=== PATIENT | female | born 1950 | race Caucasian/White ===

== ENCOUNTER → 2017-10-05 16:07 | Outpatient (CLI) | payer OTHER ==
[2016-05-04 10:50] VITALS: BMI 27.5
[~2017-10-05 16:07] MED LIST: DILAUDID2 MG PO; DILAUDID4 MG PO; PROTONIX40 MG PO; REGLAN10 MG PO; VALIUM5 MG PO; VOLTAREN100 MG PO; ZOFRAN4 MG PO
== END | disposition home or self-care (01) ==
LOC: D.MAMMO 15:30
DX: Z12.31 Encounter for screening mammogram for malignant neoplasm of breast (principal)

== ENCOUNTER 2018-03-04 20:13 | Emergency (ER) | payer MEDICARE ==
[2016-05-04 10:50] VITALS: BMI 27.5
== END 2018-03-05 | disposition home or self-care (01) ==
LOC: D.ER 20:13
DX: S80.02XA Contusion of left knee, initial encounter (principal); W19.XXXA Unspecified fall, initial encounter; Y93.89 Activity, other specified; Y92.019 Unspecified place in single-family (private) house as the place of occurrence of the external cause; F17.200 Nicotine dependence, unspecified, uncomplicated

== ENCOUNTER → 2018-03-26 11:15 | Outpatient (CLI) | payer MEDICARE, MEDICAID ==
[~2018-03-26] VITALS: Ht 162.6 cm; Wt 76.4 kg
--- NOTE | ~2018-03-26 | HEMODYNAMI ---
PATIENT:ANY RUSSELL MEDICAL RECORD: [id number] : 54 LOCATION:D.CAT ADMISSION DATE: 03/26/18 Generatedon:03/26/201813:43 Patient name: ANY RUSSELL Patient #: [id number] SSN: : 1950 Date of study: 03/26/2018 Page: Of Hemodynamic Procedure Report Patient Data Patient Demographics Procedure consent was obtained First Name: ANY Gender: Female Last Name: DREW : 1950 [facility] Initial: P Age: 67 year(s) Patient #: [id number] Race: Unknown Additional ID: [id number] Contact details [address]: [address] [place] [address] State: [place] City: [place] Zip code: [address] Admission Admission Data Admission Date: 03/26/2018 Admission Time: 11:15 Arrival Date: 03/26/2018 Arrival Time: 13:00 Admit Source: Other Insurance Payor: Medicare Height (in.): 64 BSA: 1.83 (m2) Height (cm.): 162.56 BMI: 29.52 (kg/m2) Weight (lbs.): 172 Weight (kg.): 78.02 Procedure Procedure Types Cath Procedure Diagnostic Procedure [facility] w/Coronaries Sedation Charges Moderate Sedation up to 30 minutes Peripheral Cath Diagnostic Procedure Cath Peripheral Wquti-Nhbkpfd-Uud-Off Procedure Description Procedure Date Procedure Date: 03/26/2018 Procedure Start Time: 13:12 Procedure End Time: 13:38 Procedure Staff Name Function Lencho Montanez MD Performing Physician Alee Soto RT Monitor Tereza Krishna RN Nurse Bonita Medina RT Scrub Procedure Data Cath Procedure Fluoroscopy Diagnostic fluoroscopy Total fluoroscopy Time: 2.8 time: 2.8 min min Diagnostic fluoroscopy Total fluoroscopy dose: 421 dose: 421 mGy mGy Contrast Material Contrast Material Type Amount (ml) Isovue 300 118 Entry Location Entry Primary Successful Side Size Upsize Upsize Entry Closure Succes sful Closure Location (Fr) 1 (Fr) 2 (Fr) Remarks Device Remarks Femoral Left 5 Fr Exoseal artery Estimated blood loss: 5 ml Diagnostic catheters Device Type Used For End Catheter Placement MULTIPACK JL 4.0 5Fr Left Coronary catheter Angiography MULTIPACK 3DRC 5Fr Right Coronary catheter Angiography MULTIPACK Pigtail 5 Fr Multi-vessel catheter Angiography Procedure Complications No complications Procedure Medications Medication Administration Route Dosage Oxygen etCO2 Nasal cannula 2 l/min Heparin Flush Bag added to field 2 bags (1000units/500ml NS) 0.9% NaCl I.V. 100 ml/hr Lidocaine 1% added to field 20 Versed I.V. 1 mg Fentanyl I.V. 50 mcg Versed I.V. 1 mg Fentanyl I.V. 50 mcg Versed I.V. 1 mg Fentanyl I.V. 50 mcg Versed I.V. 1 mg Fentanyl I.V. 50 mcg Versed I.V. 1 mg Fentanyl I.V. 50 mcg Hemodynamics Rest BSA: 1.83 (m2) O2 Consumption: Estimated: 176.02 (ml/min) O2 Consumption indexed : Estimated:96.19 (ml/min/m) Heart Rate: 77 (bpm) Pressure Samples Time Site Value (mmHg) Purpose Heart Use Rate(bpm) 13:29 LV 112/21,26 Snapshot 85 13:30 AO 128/58(88) Pullback 87 13:30 LV 129/-4,18 Pullback 87 Gradients Valve Time Site 1 Site 2 Mean SEP/DFP Peak To Heart Use (mmHg) (sec/min) Peak Rate (mmHg) (bpm) Aortic 13:30 LV AO 5 23 1 87 129/-4,18 128/58(88) Calculations Valve P-P Mean Valve Index Valve Source Name Gradient Area Flow (cm2) Aortic 1 5 1 5 Snapshots Pre Cath Intra NCS Post Cath Vital Signs Time Heart Resp SPO2 etCO2 NIBP (mmHg) Rhythm Pain Sedation Rate (ipm) (%) (mmHg) Status Level (bpm) 13:00:20 77 17 100 14.2 134/86(129) NSR 0 (11) 10(A) , No pain 13:05:00 79 19 100 20.2 92/60(82) NSR 0 (11) 10(A) , No pain 13:09:39 80 17 99 20 99/57(65) NSR 0 (11) 10(A) , No pain 13:14:17 78 18 98 18.7 94/64(76) NSR 0 (11) 9(A) , No pain 13:18:54 77 18 93 14.9 105/67(97) NSR 0 (11) 10(A) , No pain 13:23:32 86 17 95 20.2 107/77(87) NSR 0 (11) 9(A) , No pain 13:28:15 88 17 95 0 107/58(76) NSR 0 (11) 9(A) , No pain 13:32:54 88 16 99 18.7 88/58(75) NSR 0 (11) 9(A) , No pain 13:37:30 88 16 99 18.7 84/54(71) NSR 0 (11) 10(A) , No pain 13:42:05 83 17 100 21.7 91/62(72) NSR 0 (11) 10(A) , No pain Medications Time Medication Route Dose Verified Delivered Reason Notes Eff ectiveness by by 12:59:47 Oxygen etCO2 2 Lencho Buffie Per Nasal l/min Tarik Krishna RN physician cannula 12:59:56 Heparin Flush added 2 Lencho Buffie used for Bag to bags Tarik Krishna RN procedure (1000units/500ml field NS) 13:00:06 0.9% NaCl I.V. 100 Lencho Buffie Per ml/hr Tarik Krishna RN physician 13:01:08 Lidocaine 1% added 20ml Lencho Buffie for local to vial Tarik Krishna RN anesthetic field 13:04:28 Versed I.V. 1 mg Lencho Buffie for Tarik Krishna RN sedation 13:04:33 Fentanyl I.V. 50 Lencho Buffie for mcg Tarik Krishna RN sedation 13:08:35 Versed I.V. 1 mg Lencho Buffie for Tarik Krishna RN sedation 13:08:39 Fentanyl I.V. 50 Lencho Buffie for mcg Tarik Krishna RN sedation 13:12:25 Versed I.V. 1 mg Lencho Buffie for Tarik Krishna RN sedation 13:12:28 Fentanyl I.V. 50 Lencho Buffie for mcg Tarik Krishna RN sedation 13:18:28 Versed I.V. 1 mg Lencho Buffie for Montanez MD Krishna RN sedation 13:19:31 Fentanyl I.V. 50 Lencho Cesiaie for mcg Tarik Krishna RN sedation 13:23:21 Versed I.V. 1 mg Lencho Tereza for Tarik Krishna RN sedation 13:23:24 Fentanyl I.V. 50 Lencho Tereza for mcg Tarik Krishna RN sedation Procedure Log Time Note 12:44:31 Tereza Krishna RN sent for patient. Start room use. 12:44:32 Time tracking: Regular hours (M-F 7:00 - 5:00) 12:44:37 Plan of Care:Hemodynamics will remain stable., Cardiac rhythm will remain stable., Comfort level will be maintained., Respiratory function will remain adequate., Patient/ family verbilizes understanding of procedure., Procedure tolerated without complication., Recovers from procedure without complications.. 12:48:23 Diagnostic Cath Status : Elective 12:48:54 Admit Source: Other 12:48:57 Patient Height : 64 inches 12:49:01 Patient Weight : 172 lbs 12:49:02 Arrival Date: 03/26/2018 1:00:00 PM 12:49:14 Insurance Payor : Medicare 12:53:18 Patient received from Pre/Post Procedure Room to [facility] 2 Alert and oriented. Tansferred to table in Supine position. 12:53:19 Warm blankets applied, and robert hugger turned on for patient comfort. 12:53:19 Correct patient and procedure confirmed by team. 12:53:21 Signed procedure consent form obtained from patient. 12:53:22 ECG and BP/O2 sat monitors applied to patient. 12:57:52 Vital chart was started 12:59:47 Oxygen 2 l/min etCO2 Nasal cannula was administered by Tereza Krishna RN; Per physician; 12:59:56 Heparin Flush Bag (1000units/500ml NS) 2 bags added to field was administered by Tereza Krishna RN; used for procedure; 13:00:06 0.9% NaCl 100 ml/hr I.V. was administered by Tereza Krishna RN; Per physician; 13:00:19 Baseline sample Acquired. 13:00:27 Rhythm: sinus rhythm 13:00:30 Full Disclosure recording started 13:00:35 H&P Date Dictated: 03/26/2018 Within 30 days and on chart., H&P Addendum completed by physician on day of procedure. (MUST COMPLETE FOR ALL OUTPATIENTS). 13:00:37 Pre-procedure instructions explained to patient. 13:00:37 Pre-op teaching completed and patient verbalized understanding. 13:00:39 Family in waiting room. 13:00:40 Patient NPO since Midnight. 13:00:42 Is the patient allergic to Iodine/contrast media? No. 13:00:43 Was the patient premedicated? No 13:00:45 Is patient on blood thinner?No 13:00:51 Patient diabetic? No. 13:00:54 Previous problem with sedation/anesthesia? No ? 13:00:56 Snore? Yes 13:00:57 Sleep apnea? No 13:00:58 Deviated septum? No 13:00:59 Opens mouth fully? Yes 13:01:00 Sticks out tongue? Yes 13:01:01 Airway obstruction? No ? 13:01:07 Dentures? Yes in tight 13:01:08 Lidocaine 1% 20ml vial added to field was administered by Tereza Krishna RN; for local anesthetic; 13:03:01 Pre procedure: right dorsailis pedis pulse 1+ Palpable, but thready & weak; easily obliterated 13:03:04 Pre procedure: left dorsailis pedis pulse 1+ Palpable, but thready & weak; easily obliterated 13:03:06 Patient pain scale 0/10 ?. 13:03:12 IV patent on arrival in left forearm with 0.9% NaCl at [facility]. 13:03:14 Lab results completed and on chart. 13:03:19 Bilateral groins area was prepped with chlora-prep and draped in sterile fashion 13:03:20 Alarms reviewed by R. N. 13:03:20 Sharps counted by scrub and verified by R.N. 13:03:21 Physician arrived 13:03:22 --------ALL STOP TIME OUT------ 13:03:22 Final Timeout: patient, procedure, and site verified with staff and physician. All members of the team are in agreement. 13:03:26 Bilateral groins site verified by team. 13:03:29 Physical assessment completed. ASA score P 2 - A patient with mild systemic disease as per Lencho Montanez MD. 13:03:33 Sedation plan: IV Moderate Sedation Medication:Versed, Fentanyl 13:04:28 Versed 1 mg I.V. was administered by Tereza Krishna RN; for sedation; 13:04:33 Fentanyl 50 mcg I.V. was administered by Tereza Krishna RN; for sedation; 13:05:45 Use device set Femoral Dx 13:05:46 ACIST Syringe (28821) opened to sterile field. 13:05:46 Bag Decanter (2002S) opened to sterile field. 13:05:47 Medline Cath Pack ([id number]) opened to sterile field. 13:05:47 DIAGNOSTIC WIRE .035 260cm J wire (407191) opened to sterile field. 13:05:48 ACIST Hand Control (01285) opened to sterile field. 13:05:49 ACIST Manifold (56585) opened to sterile field. 13:05:49 DIAGNOSTIC Multipack 5Fr catheter set ([id number]) opened to sterile field. 13:05:51 Tegaderm 4 x 4 (1626W) opened to sterile field. 13:05:52 SHEATH Prelude 5Fr 0.035 ([id number]) opened to sterile field. 13:08:35 Versed 1 mg I.V. was administered by Tereza Krishna RN; for sedation; 13:08:39 Fentanyl 50 mcg I.V. was administered by Tereza Krishna RN; for sedation; 13:12:25 Versed 1 mg I.V. was administered by Tereza Krishna RN; for sedation; 13:12:28 Procedure started. 13:12:28 Fentanyl 50 mcg I.V. was administered by Tereza Krishna RN; for sedation; 13:12:59 Local anesthetic to right femoral artery with Lidocaine 2% by Lencho Montanez MD.INITIAL ACCESS ONLY 13:13:02 Zero performed for pressure channel P1 13:13:06 Zero performed for pressure channel P1 13:18:28 Versed 1 mg I.V. was administered by Tereza Krishna RN; for sedation; 13:19:31 Fentanyl 50 mcg I.V. was administered by Tereza Krishna RN; for sedation; 13:23:20 Local anesthetic to left femerol artery with Lidocaine 1% by Lencho Montanez MD.ADDITIONAL ACCESS 13:23:21 Versed 1 mg I.V. was administered by Tereza Krishna RN; for sedation; 13:23:24 Fentanyl 50 mcg I.V. was administered by Tereza Krishna RN; for sedation; 13:24:41 A 5 Fr sheath was inserted into the Left Femoral artery 13:24:52 A MULTIPACK JL 4.0 5Fr catheter was advanced over the wire and used for Left Coronary Angiography. 13:25:47 LCA angiography performed. 13:25:53 Injector settings: Ml/sec: 3, Volume: 6, 13:26:53 Catheter removed. 13:26:58 A MULTIPACK 3DRC 5Fr catheter was advanced over the wire and used for Right Coronary Angiography. 13:27:52 RCA angiography performed. 13:27:55 Injector settings: Ml/sec: 3, Volume: 6, 13:28:30 Catheter removed. 13:28:37 A MULTIPACK Pigtail 5 Fr catheter was advanced over the wire and used for Multi-vessel Angiography. 13:29:29 LV hemodynamics recorded. 13:29:30 LV gram done using DEMPSEY 13:29:32 Injector settings: Ml/sec: 5, Volume: 15, 13:29:43 EF : 60 % 13:30:22 Abdominal angiogram w/ runoff was performed. 13:35:35 Catheter removed. 13:35:49 EXOSEAL 5Fr (EX500) opened to sterile field. 13:35:53 Sheath removed intact; hemostasis achieved with Exoseal to the Left Femoral artery. 13:35:55 Procedure ended.(Physican Out) 13:36:22 Fluoroscopy time 02.80 minutes. 13:36:28 Fluoroscopy dose: 421 mGy 13:36:28 Flurop Dose total: 421 13:36:42 Contrast amount:Isovue 300 118ml. 13:36:44 Sharps counted by scrub and verified by R.N. 13:36:48 Insertion/operative site no bleeding no hematoma. 13:36:51 Post-op/insertion site Left Femoral artery dressed using a 4 x 4 and Tegaderm. 13:36:55 Post left femerol artery:stable 13:36:57 Post Procedure Pulses reassessed and unchanged 13:37:00 Post procedure rhythm: unchanged. 13:37:05 Estimated blood loss: 5 ml 13:37:08 Post procedure instruction explained to patient.Patient verbalizes understanding. 13:37:10 Patient needs reinforcement of post procedure teaching. 13:37:37 Procedure type changed to Cath procedure, Diagnostic procedure, LHC, LHC w/Coronaries, Sedation Charges, Moderate Sedation up to 30 minutes, Peripheral Cath Diagnostic Procedure, Cath Peripheral, Uocii-Keaxxfv-Ixh-Off 13:37:38 Procedure and supply charges have been captured, reviewed, submitted and are correct. 13:37:43 Procedure Complication : No complications 13:37:45 Vital chart was stopped 13:37:46 See physician's report for complete and final results. 13:38:06 Report given to Pre/Post Procedure Room. 13:38:10 Patient transfered to Pre/Post Procedure Room with Stretcher. 13:38:12 Procedure ended. 13:38:12 Full Disclosure recording stopped 13:38:19 End room use (Document Last) Device Usage Item Name Manufacture Quantity Catalog Number Hospital Part Current M inimal Lot# / Charge Number Stock Stock Serial# Code ACIST Syringe Acist 1 85590 192875 614012 517011 2 0 (69787) [employer] Bag Decanter Microtek 1 2001S 747191 82331 [id number] 5 (2001S) Medical Inc. Medline Cath Cardinal 1 [id number] 006527 31433 684569 5 Pack Health ([id number]) DIAGNOSTIC WIRE [facility] Chriss 1 081481 787748 216290 600676 3 0 .035 260cm J wire (923023) ACIST Hand Acist 1 74404 118206 405382 038278 5 Control (26994) [employer] ACIST Manifold Acist 1 26962 425666 651953 689928 5 (28251) [employer] DIAGNOSTIC Cardinal 1 [id number] 878139 95113 823646 3 0 Multipack 5Fr Health catheter set ([id number]) Tegaderm 4 x 4 3M 1 1626W 107844 922635 290906 5 (1626W) SHEATH Prelude Merit 1 [id number] 002177 789333 144121 5 5Fr 0.035 Medical ([id number]) MULTIPACK JL Cardinal 1 [id number] 5 4.0 5Fr Health catheter MULTIPACK 3DRC Cardinal 1 [id number] 5 5Fr catheter Health MULTIPACK Cardinal 1 [id number] 5 Pigtail 5 Fr Health catheter EXOSEAL 5Fr Cardinal 1 EX500 201424 300563 881880 1 0 (EX500) Health Signature Audit [place] Stage Time Signature Unsigned Intra-Procedure 03/26/2018 Alee Soto 1:43:22 PM RT(R) Signatures Monitor : Alee Soto RT Signature : Date : Time : [facility] [address] [place] [address]
[~2018-03-26 11:15] MED LIST changes: +ZYLOPRIM100 MG PO
[2018-03-26 11:51] VITALS: BP 121/63; Ht 162.6 cm; Wt 76.4 kg
[2018-03-26 12:05] LABS: BASOPHILS 0.3 % (0-2); HEMOGLOBIN 11.9 g/dL (12-16); IMMATURE GRANULOCYTES 0.4 % (0-5); MCH 28.5 pg (26.0-34.0); MCHC 32.2 g/dL (31.0-37.0); MCV 88.5 fL (80.0-100.0); MEAN PLATELET VOLUME 10.9 fL (7.4-10.4); MONOCYTES 6.4 % (2-11); NEUTROPHILS 58.9 % (40-80); RBC 4.18 10x6/uL (4.00-5.40); RDW 14.8 % (11.5-14.5)
[2018-03-26 12:12] LABS: ANION GAP 13.4 mmol/L (8-16); CALCIUM 9.1 mg/dL (8.5-10.1); CARBON DIOXIDE 25.5 mmol/L (21.0-32.0); CREATININE - SERUM 1.3 mg/dL (0.6-1.3); PLATELET COUNT 262 10x3/uL (130-400); POTASSIUM - SERUM 3.9 mmol/L (3.5-5.1)
== END | disposition home or self-care (01) ==
LOC: D.CATH 11:15
PROVIDERS: Internal Medicine Cardiovascular Disease
DX: I25.119 Atherosclerotic heart disease of native coronary artery with unspecified angina pectoris (principal); I70.213 Atherosclerosis of native arteries of extremities with intermittent claudication, bilateral legs; Z01.812 Encounter for preprocedural laboratory examination

== ENCOUNTER → 2018-04-01 14:33 | Outpatient (CLI) | payer MEDICARE, MEDICAID ==
[2018-03-26 11:51] VITALS: BMI 28.9
== END | disposition home or self-care (01) ==
LOC: D.CT 14:33
DX: R91.8 Other nonspecific abnormal finding of lung field (principal)

== ENCOUNTER → 2018-05-01 13:28 | Outpatient (CLI) | payer MEDICARE, MEDICAID ==
[2018-03-26 11:51] VITALS: BMI 28.9
== END | disposition home or self-care (01) ==
LOC: D.US 13:28
DX: N18.9 Chronic kidney disease, unspecified (principal); M10.9 Gout, unspecified; D64.9 Anemia, unspecified; Z68.28 Body mass index [BMI] 28.0-28.9, adult

== ENCOUNTER → 2018-06-07 10:29 | Outpatient (CLI) | payer MEDICARE, MEDICAID ==
[2018-03-26 11:51] VITALS: BMI 28.9
== END | disposition home or self-care (01) ==
LOC: D.MRI 10:29
DX: M54.16 Radiculopathy, lumbar region (principal)

== ENCOUNTER → 2018-12-23 09:12 | Outpatient (CLI) | payer MEDICARE, MEDICAID ==
[2018-03-26 11:51] VITALS: BMI 28.9
== END | disposition home or self-care (01) ==
LOC: D.CT 12-19 14:30
PROVIDERS: ATTEND Family Medicine
DX: R10.9 Unspecified abdominal pain (principal)

== ENCOUNTER 2019-01-29 13:33 | Emergency (ER) | payer MEDICARE, MEDICAID ==
[~2019-01-29] VITALS: Ht 162.6 cm; Wt 73.6 kg
[2019-01-29 13:47] VITALS: Ht 162.6 cm; Wt 73.6 kg
[2019-01-29] MEDS ORDERED: FOLATE0.4 MG PO (13:49)
[2019-01-29] MEDS ORDERED: CYCLOBENZAPRINE10 MG PO (13:50)
[2019-01-29] MEDS ORDERED: TREXALL5 MG PO (13:50)
[2019-01-29] MEDS ORDERED: HYDROCODON-ACE1 EAC7 PO (14:26)
[2019-01-29 15:13] VITALS: BP 131/81
== END 2019-01-29 15:10 | disposition home or self-care (01) ==
LOC: D.ER 13:33
DX: M47.9 Spondylosis, unspecified (principal); M54.5 Low back pain

== ENCOUNTER → 2019-08-13 13:06 | Outpatient (CLI) | payer MEDICARE, MEDICAID ==
[2019-01-29 13:47] VITALS: BMI 27.8
[~2019-08-13 13:06] MED LIST changes: +CYCLOBENZAPRINE10 MG PO; +FOLATE0.4 MG PO; +HYDROCODON-ACE1 EAC7 PO; +TREXALL5 MG PO
== END | disposition home or self-care (01) ==
LOC: D.HCCECHO 13:06
PROVIDERS: ATTEND Internal Medicine Cardiovascular Disease
DX: I25.10 Atherosclerotic heart disease of native coronary artery without angina pectoris (principal)

== ENCOUNTER → 2020-07-12 09:05 | Outpatient (CLI) | payer MEDICARE, MEDICAID ==
[2019-01-29 13:47] VITALS: BMI 27.8
== END | disposition home or self-care (01) ==
LOC: D.HCCARDIO 09:05
PROVIDERS: ATTEND Internal Medicine Cardiovascular Disease
DX: I25.10 Atherosclerotic heart disease of native coronary artery without angina pectoris (principal)